=== PATIENT | male | born 2000 | race Hispanic/Latino ===

== ENCOUNTER 2022-12-01 18:48 | Emergency (ER) | payer OTHER ==
[~2022-12-01] VITALS: Ht 170.2 cm; Wt 59.7 kg
[2022-12-01 20:20] LABS: HEMATOCRIT 37.5 % (42.0-52.0); HEMOGLOBIN 12.6 g/dl (13.5-17.5); MEAN CORPUSCULAR HEMOGLOBIN 26.6 pg (27.0-33.0); MEAN CORPUSCULAR HGB CONC 33.6 g/dl (32.0-36.5); MEAN CORPUSCULAR VOLUME 79.3 fl (80.0-96.0); PLATELET COUNT, AUTOMATED 468 10^3/uL (150-450); RED BLOOD COUNT 4.73 10^6/uL (4.30-6.10); WHITE BLOOD COUNT 14.4 10^3/uL (4.0-10.0)
[2022-12-01 20:45] LABS: ALBUMIN 3.4 G/DL (3.2-5.2); ALKALINE PHOSPHATASE 92 U/L (46-116); ALT/SGPT 13 U/L (7.0-40); AST/SGOT 14 U/L (<34); BILIRUBIN,DIRECT 0.2 MG/DL (<0.4); BILIRUBIN,TOTAL 0.4 MG/DL (0.3-1.2); BLOOD UREA NITROGEN 9 MG/DL (9-23); CALCIUM LEVEL 9.3 MG/DL (8.5-10.1); CARBON DIOXIDE LEVEL 26 MMOL/L (20-31); CHLORIDE LEVEL 102 MMOL/L (98-107); GLOMERULAR FILTRATION RATE > 60.0 (>60); GLUCOSE, FASTING 80 MG/DL (60-100); POTASSIUM SERUM 4.3 MMOL/L (3.5-5.1); SODIUM LEVEL 138 MMOL/L (136-145); TOTAL PROTEIN 8.1 G/DL (5.7-8.2)
[2022-12-02] MEDS ORDERED: ONDANSETRON 4MG ORAL DISINTEGRATING TAB PO ONE (00:25)
[2022-12-02] MEDS ORDERED: UNRESOLVED CLARIFICATION ENTRY XX STA (00:25)
[2022-12-02] MEDS ORDERED: ONDA4TAB6 PO (00:31)
[2022-12-02] MEDS ORDERED: BENZ-18 PO (00:31)
[2022-12-02 01:26] VITALS: BP 129/68; TEMP 98.8; O2SAT 98
== END 2022-12-02 01:51 | disposition home or self-care (01) ==
LOC: M ED 18:48
DX: B34.8 Other viral infections of unspecified site (principal); Z79.83 Long term (current) use of bisphosphonates; Z79.899 Other long term (current) drug therapy